=== PATIENT | male | born 1965 | race Asian ===

== ENCOUNTER 2025-10-19 07:17 | Emergency (ER) | payer BC, MEDICAID ==
[~2025-10-19] VITALS: Ht 167.6 cm; Wt 75.3 kg
[2025-10-19 07:24] VITALS: TEMP 98.5
--- NOTE | 2025-10-19 08:14 | RADIOLOGY REPORT ---
CLINICAL HISTORY: right sided rib pain TECHNIQUE: Single view of the chest was obtained. COMPARISON: None FINDINGS: The heart size and pulmonary vasculature are normal. There is a small left pleural effusion. No focal lung consolidation is seen. IMPRESSION: Small left pleural effusion.
--- NOTE | 2025-10-19 08:54 | Physician Documentation ---
History of Present Illness CC: TY OLIVA MD ~ Chief Complaint: Rib pain Stated Complaint: FALL,RIB PAIN Time Seen by MD: 08:27 Primary Medical Doctor: Larry [facility] A 60 year old male patient with past medical history of insomnia,chronic back presented to the ED after he had a fall on his stairs on a slippery wet stair. Patient stated that he didn't notice that the with stair was wet and had a fall, hit on right side of his ribs 9th-10th rib posteriorly. Patient endorsed loss of consciousness, mild blurry vision and confusion for 10-15 seconds. Post which patient recouped himself and tried going to bed, but he continued to have persistent pain, eventually prompted him to come to the emergency department. Described the pain as sharp associated with exertions and deep breaths. Patient denied any hit on head, not take any blood thinners. Patient denied any chest pain, palpitations or shortness of breath. Patient normally uses a cane for walking as he has chronic back pain. Tetanus within 5 Years?: No (unsure ) Allergies: Coded Allergies: No Known Allergies (Unverified , 10/19/25) Active Prescriptions See Medication Reconciliation Form. Medication Reconciliation Scheduled PRN Hydrocodone Bit/Acetaminophen 5/325 MG ([place] 5/325 MG), 1 TAB PO TID PRN PRN for pain Past Medical History Past Medical History: Chronic Back Pain Smoking Status: Never smoker Alcohol Use: None Lives with: Family Lives In: Home Review of Systems ROS Constitutional: No fever, no dizziness, no weakness, no decrease in appetite HEENT: Normal vision. No sore throat, epistaxis, tinnitus Cardiovascular: No chest pain/discomfort, palpitations, syncope. no pedal edema Respiratory: No sob, cough,hemoptysis Gastrointestinal: No abdominal pain, nausea, vomiting. No diarrhea, melena. Genitourinary: No frquency, urgency, incontinence, nocturia. No dysuria, ashley turia Musculoskeletal: Right posterior rib pain Endocrine: No fatigue, polydipsia, polyuria. No heat or cold intolerance Neurologic: No headache, vertigo. No weakness, numbness or tingling of extremities Psychiatric: No hallucinations/delusions, no anhedonia, no suicidal ideation Hematologic: Right posterior 9th-10th rib bruise Physical Exam Vital Signs: Temperature: 98.5, Source: Oral, Heart Rate: 48, Respiratory Rate: 16, BP: 156/59, Pulse Oximetry: 99, Weight: 75.300 Oxygen Flow Rate: 0 EENT: PERRL/EOMI Neck: non-tender Cardiovascular: normal peripheral pulses, regular rate, rhythm, no edema Chest: tender (Right posterior 10th rib tenderness) Gastrointestinal: normal palpation Extremities: normal range of motion Skin: erythema, tender Neurologic: oriented x4 Lymphatic: normal inspection Psychiatric: normal mood/affect Progress Results/Orders Results/Orders Orders - CARMEN ARVIZU, DURAN Ct Head (10/19/25 10:08) Ribs,Unilat (10/19/25 09:06) Completed Orders - CARMEN ARVIZU RES Cbc/Diff (10/19/25 08:54) CMP (10/19/25 08:54) Hs Troponin I W Calculations (10/19/25 08:54) Ct Head (10/19/25 10:08) Stat Ekg (10/19/25 09:04) Ribs,Unilat (10/19/25 09:06) Add On Test (10/19/25 09:48) CK (10/19/25 09:30) Vital Signs 10/19/25 10/19/25 10/19/25 07:24 10:16 11:29 Temp 98.5 Pulse 48 47 48 Resp 16 16 18 B/P (MAP) 156/59 133/82 (99) 121/81 Pulse Ox 99 100 99 O2 Flow Rate 0 0 Laboratory Tests Test 10/19/25 09:30 White Blood Count 5.7 Red Blood Count 5.04 Hemoglobin 14.4 Hematocrit 43.5 Mean Corpuscular Volume 86.3 Mean Corpuscular Hemoglobin 28.5 Mean Corpuscular Hemoglobin Concent 33.1 Red Cell Distribution Width 14.4 Platelet Count 175 Mean Platelet Volume 9.5 Neutrophils (%) (Auto) 71.0 Lymphocytes (%) (Auto) 18.8 L Monocytes (%) (Auto) 6.1 Eosinophils (%) (Auto) 3.5 Basophils (%) (Auto) 0.6 Neutrophils # (Auto) 4.0 Lymphocytes # (Auto) 1.1 Monocytes # (Auto) 0.3 Eosinophils # (Auto) 0.2 Basophils # (Auto) 0.0 CBC Comment Sodium Level 144 Potassium Level 4.6 Chloride Level 110 H Carbon Dioxide Level 31.5 Anion Gap 3 L Blood Urea Nitrogen 13 Creatinine 0.85 Estimated GFR/1.73 m2 > 90 BUN/Creatinine Ratio 15.3 Glucose Level 89 Calcium Level 8.6 Total Bilirubin 1.2 H Aspartate Amino Transf (AST/SGOT) 24 Alanine Aminotransferase (ALT/SGPT) 36 Alkaline Phosphatase 117 H Total Creatine Kinase 71 Troponin I High Sensitivity 6 Total Protein 7.2 Albumin 3.9 Globulin 3.3 Albumin/Globulin Ratio 1.2 Chemistry Comments EKG/XRAY/CT/US/VASC/MRI EKG : Intepreting Monitor?: Yes (Sinus bradycardia was noted) Chest X-Ray : Ribs/Bones: ribs (Displaced posterolateral fracture of 10th rib) CT : Interpreted By: radiologist CT: head (CT head reported no acute intracranial abnormal) Medical Decision Making Additional information obtaine: family Findings Patient's differential diagnosis includes costochondritis, rib fracture, myocardial infarction, rhabdomyolysis Differential Dx:Considerations: Include: Chest wall contusion, Rib fracture Additional Comment A 60 year old male patient with past medical history of insomnia,chronic back presented to the ED after he had a fall on his stairs on a slippery wet stair, mechanical fall on right posterolateral 9-10 ribs. Labs: Troponins, WBC, creatinine kinase, electrolytes within normal limits CT head reported no acute intracranial abnormality Rib x-ray reported mildly displaced right posterolateral 10th rib displaced Departure Time of Disposition: 11:00 Disposition: 01 HOME / SELF CARE / HOMELESS Impression: Primary Impression: Fracture of right tenth rib Discharge Instructions: Rib Fracture Additional Instructions: Please take medication as prescribed. Monitor for improvement and resolution. Follow up with your PCP in the next 1-2 weeks. Return to the ED with any acutely worsening symptoms. Referrals: NO PRIMARY CARE PROVIDER (PCP) Prescriptions Hydrocodone Bit/Acetaminophen 5/325 MG ([place] 5/325 MG) 5 Mg/325 Mg Tablet 1 TAB PO TID PRN PRN for pain for 5 Days, #15 TAB Prov: TY OLIVA MD 10/19/25 Comments Mild displaced right posterolateral 10th rib Discharging the patient home with the pain medication, patient does not require any active intervention currently Signature Scribe Signature: - Attestation: - CARMEN ARVIZU, RES Oct 19, 2025 08:54 TY OLIVA MD Oct 19, 2025 10:54
--- NOTE | 2025-10-19 09:16 | ELECTROCARDIOGRAPH REPORT ---
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
[2025-10-19 09:38] LABS: MEAN PLATELET VOLUME 9.5 FL (7.4-10.4); RED CELL DISTRIBUTION WIDTH 14.4 % (11.5-14.5)
[2025-10-19 09:52] LABS: CREATININE 0.85 MG/DL (0.60-1.10); TOTAL CARBON DIOXIDE 31.5 MMOL/L (24-32); eCRCL 82 ML/MIN; eGFR > 90 ML/MIN
--- NOTE | 2025-10-19 09:54 | RADIOLOGY REPORT ---
[facility] EXAM[facility]ATION: DI RIBS,UNILAT INDICATION: mechnical fall COMPARISON: None TECHNIQUE: Frontal view of the chest and 3 views of the right ribs history FINDINGS: No focal consolidation, pleural effusion or significant pneumothorax. Normal cardiomediastinal silhouette. Mildly displaced fracture of the right posterolateral 10th rib. IMPRESSION: No acute cardiopulmonary disease. Mildly displaced fracture of the right posterolateral 10th rib.
--- NOTE | 2025-10-19 10:26 | RADIOLOGY REPORT ---
CT HEAD WITHOUT CONTRAST HISTORY: Mechanical fall. Rule out stroke. COMPARISON: None available. CONTRAST: Study was performed without contrast. TECHNIQUE: Axial images from the skull base to the vertex with coronal and sagittal reformatted images. This exam was performed according to our departmental dose optimization program. Up-to-date CT equipment and radiation dose reduction techniques are utilized as appropriate. DOSE: CTDIvol: 66.3 mGy; DLP: 1183.4 mGy-cm. FINDINGS: BRAIN PARENCHYMA: No acute hemorrhage, large vascular territory infarct, or mass effect. White matter is within normal limits for age. Incidentally noted partially empty sella. VENTRICLES/EXTRA-AXIAL SPACES: No evidence of hydocephalus. No extra-axial collection. Basal cisterns are patent. EXTRACRANIAL STRUCTURES: No acute or suspicious ossues abnormality. Normal soft tissues. Partially images portions of the paranasal sinuses and mastoids demonstrate no significant abnormality. Orbits are unremarkable. IMPRESSION: No acute intracranial abnormality.
[2025-10-19] MEDS ORDERED: HYDR-3965 PO (10:53)
[2025-10-19 11:29] VITALS: BP 121/81; PULSE 48; RESP 18; O2SAT 99
== END 2025-10-19 11:35 | disposition home or self-care (01) ==
LOC: ER 07:18
DX: S22.31XA Fracture of one rib, right side, initial encounter for closed fracture (principal); G89.29 Other chronic pain; W01.0XXA Fall on same level from slipping, tripping and stumbling without subsequent striking against object, initial encounter; Y93.89 Activity, other specified; Y92.89 Other specified places as the place of occurrence of the external cause; Y99.8 Other external cause status
CPT/HCPCS: 36415; 70450; 71045; 71100; 80053; 82550; 84484; 85025; 93005; 99285